=== PATIENT | male | born 1980 | race Caucasian/White ===

== ENCOUNTER → 2024-06-16 14:16 | Outpatient (CLI) | payer OTHER, SELFPAY ==
--- NOTE | 2024-06-16 14:20 | DI.US.S_ITS ---
PROCEDURE: US EXTREMITY NONVASC LOWER RT INDICATIONS: PAIN IN RT 4TH DIGIT TECHNIQUE: Real-time scanning was performed of the right 4th finger, with image documentation. COMPARISON: None. FINDINGS: Focused ultrasound examination of dorsal right 4th finger at the area of concern near 4th PIP joint shows 1.2 x 0.3 x 1.3 cm hypoechoic nodule with internal vascularity over dorsal aspect of 4th PIP joint and 4th middle phalangeal base/proximal shaft. IMPRESSION: 1.2 x 0.3 x 1.3 cm solid hypoechoic nodule with internal vascularity seen in dorsal right 4th finger at the area of concern suggestive of soft tissue neoplasm of indeterminate nature. Consider excision for more definitive diagnosis. Dictated by: Mayank Bates M.D. on 06/16/2024 at 20:44 Approved by: Mayank Bates M.D. on 06/16/2024 at 20:47
== END ==
PROVIDERS: PCP Family Medicine; Referring Provider Family Medicine; Visit Provider Family Medicine
DX: M79.644 Pain in right finger(s) (principal); R22.31 Localized swelling, mass and lump, right upper limb
CPT/HCPCS: 76882